=== PATIENT | female | born 1935 | race Caucasian/White ===

== ENCOUNTER 2017-04-01 12:52 | Observation (INO) | payer MEDICARE, SELFPAY ==
[~2017-04-01] VITALS: Ht 165.1 cm; Wt 56.4 kg
[~2017-04-01 12:52] MED LIST: ACETYL PO; ALFALFA250 MG PO; ASCO500 PO; ASCORBIC ACID PO; ASPI81CH PO; ASTAXANTHIN4 MG PO; Armour Thyroid120 MG PO; Ativan0.5 MG PO; BETA GLUCAN; BIO CURCUMIN PO; BOSWELLIA SERRA10 GM; CEPH500 PO; CHOL10002; CHOL10002 PO; CLON.1 PO; CORDYCEPS PO; CORYDALIS; CYTO RALA30 GM; Cephalexin500 MG PO; Co Q-10100 MG PO; Coq-10100 MG PO; Curcumin1 GM; Curcumin1 GM PO; Cytomel5 MCG PO; DANDELION ROOT PO; DILT120 PO; DOCU100 PO; FISH1000 PO; FURO40 PO; GAVILAX17 GM PO; GINKGO60 MG PO; GLUC500 PO; GRAPE SEED EXTR50 MG; Ginger500 MG; HAWTHORN PO; HAWTHORN150 MG; HYDR1TAB94 PO; LACTOFERRIN PO; LEVOTHYROXINE PO; LEVSOD100 PO; LEVSOD50 PO; LIOT5 PO; LORA.5 PO; LOSA25; LOSHYD PO; LOSHYD100 PO; Lipoic Acid1 GM PO; MAGCIT300 PO; MARIJUANA; METO10 PO; METO50 PO; MILK THISTLE200 MG; MILK THISTLE200 MG PO; MSM1000 MG PO; MULVIT PO; MULVITMIND PO; NALTREXONE PO; NATURE-THROI81.25 MG PO; NIAC500 PO; OLIVE LEAF EXT250 MG PO; ONDA4ODT MM; Oxycodone HCl5 M1 PO; PANT40 PO; PSYL5.85P PO; RESVERATROL100 MG PO; Super B-50 Com1 EACH PO; TAURINE; TOCO400; VITAMIN K240 MCG PO; Vitamin C100 MG/ML PO; Zofran4 MG PO; Zofran8 MG PO; [UNRECOGNIZED DRUG - OTHER]; [UNRECOGNIZED DRUG - OTHER] PO; [UNRECOGNIZED DRUG - OTHER] PO; [UNRECOGNIZED DRUG - OTHER] PO; [UNRECOGNIZED DRUG - OTHER] PO; [UNRECOGNIZED DRUG - OTHER] PO; [UNRECOGNIZED DRUG - OTHER] PO
[2017-04-01 15:28] LABS: Source, Urine Clean Catch
[2017-04-01 15:32] LABS: Albumin, Blood 3.3 g/dL (3.4-5.0); Albumin/Globulin Ratio 1.4 (0.8-1.8); Bilirubin, Total 0.7 mg/dL (0.1-1.0); Bun/Creatinine Ratio 13.7 (12.0-20.0); Calcium, Blood 8.6 mg/dL (8.5-10.1); Creatinine, Blood 1.02 mg/dL (0.40-1.00); Globulin, Blood 2.3 g/dL (2.2-4.0); Potassium, Blood 2.7 mmol/L (3.5-5.5); Total Protein, Blood 5.6 g/dL (6.4-8.2)
[2017-04-01 15:42] LABS: Appearance, Urine Cloudy (Clear); Bilirubin, Urine Neg (Neg); Blood, Urine 2+ (Neg); Color, Urine Yellow (P-Yellow); Glucose Qualitative, Urine Neg (Neg); Ketones, Urine 2+ (Neg); Leukocyte Esterase, Urine 3+ (Neg); Nitrite, Urine Neg (Neg); Protein, Urine 2+ (Neg); Urobilinogen, Urine NORM (Normal)
[2017-04-01 15:50] LABS: Bacteria Many /hpf; Red Blood Cells, Urine 0-2 /hpf (0-2); Squamous Epithelial Cells Few /hpf (Few); White Blood Cells, Urine 50-100 /hpf (0-5)
[2017-04-01 15:51] LABS: Granular Casts 0-2 /lpf (0)
[2017-04-01 15:53] LABS: Mean Corpuscular HGB 31.3 pg (26.0-34.0); Mean Corpuscular HGB Conc 32.6 g/dL (31.5-36.5); Mean Corpuscular Volume 96 fL (80-100); Mean Platelet Volume 8.6 fL (9.1-12.4); NRBC ABSOLUTE 0.18 K/mm3 (0.00-0.02); NRBC Auto 0.2 /100 WBC (0.0-0.2); RDW Coefficient Variation 25.3 % (11.7-14.2); RDW Standard Deviation 55.1 fL (35.1-46.3); Red Blood Cell Count 1.44 M/mm3 (3.80-5.20)
[2017-04-01 15:59] LABS: Platelet Count 10 K/mm3 (150-400)
[2017-04-01 16:00] LABS: Hematocrit 13.8 % (33.0-51.0); Hemoglobin 4.5 g/dL (11.5-16.0)
[2017-04-01 16:01] LABS: White Blood Cell Count 76.88 K/mm3 (4.00-11.30)
[2017-04-01 17:14] LABS: BAND PERCENT MAN 2 % (0-8); BASOPHILS PERCENT MAN 0 % (0-2); EOSINOPHILS PERCENT MAN 0 % (0-6); LYMPHOCYTES ABSOLUTE MAN 3.84 K/mm3 (0.84-5.20); LYMPHOCYTES PERCENT MAN 5 % (21-46); METAMYELOCYTE ABSOLUTE MAN 3.84 K/mm3 (0.00-0.00); METAMYELOCYTE PERCENT MAN 5 % (0-0); MONOCYTES ABSOLUTE MAN 29.21 K/mm3 (0.16-1.47); MONOCYTES PERCENT MAN 38 % (4-13); MYELOCYTE ABSOLUTE MAN 1.53 K/mm3 (0.00-0.00); MYELOCYTE PERCENT MAN 2 % (0-0); TOTAL CELLS COUNTED 100
[2017-04-01 17:18] LABS: BLASTS PERCENT MAN 14 % (0-0); OTHER CELL PERCENT MAN 32 % (0-0); PROMYELOCYTE ABSOLUTE MAN 1.53 K/mm3 (0.00-0.00); PROMYELOCYTE PERCENT MAN 2 % (0-0)
[2017-04-01 17:30] LABS: NEUTROPHILS ABSOLUTE MAN 5.38 K/mm3 (1.96-9.15); SEG NEUTROPHILS PERCENT MAN 5 % (41-73)
[2017-04-02 05:14] LABS: Hemoglobin 7.1 g/dL (11.5-16.0)
[2017-04-02 05:38] LABS: Anion Gap 10 mmol/L (6-16); Blood Urea Nitrogen 13 mg/dL (8-24); Bun/Creatinine Ratio 13.2 (12.0-20.0); CO2, Blood 28 mmol/L (21-32); Chloride, Blood 102 mmol/L (98-108); Creatinine, Blood 0.98 mg/dL (0.40-1.00); Glomerular Filtration Rate 58 (60-); Glucose, Blood 103 mg/dL (70-99); Potassium, Blood 3.5 mmol/L (3.5-5.5); Sodium, Blood 140 mmol/L (136-145)
[2017-04-02 05:41] LABS: Troponin I <0.015 ng/mL (0.000-0.040)
[2017-04-02] MEDS ORDERED: Dazidox10 MG PO (09:12)
[2017-04-02] MEDS ORDERED: FENT50TP TOP (14:01)
== END 2017-04-02 14:31 | disposition home or self-care (01) ==
LOC: ER 12:52 → MEDS 12:53 → ER 18:31 → MEDS 19:35 → ENPENDDIS 04-02 08:26 → MEDS 04-02 14:31
PROVIDERS: Emergency Medicine; Hospitalist
DX: D46.9 Myelodysplastic syndrome, unspecified (principal); E87.6 Hypokalemia; N39.0 Urinary tract infection, site not specified; I10 Essential (primary) hypertension; I48.91 Unspecified atrial fibrillation; G89.29 Other chronic pain; E89.0 Postprocedural hypothyroidism; Z85.830 Personal history of malignant neoplasm of bone; Z98.890 Other specified postprocedural states; C41.9 Malignant neoplasm of bone and articular cartilage, unspecified; G89.3 Neoplasm related pain (acute) (chronic); J90 Pleural effusion, not elsewhere classified; J98.8 Other specified respiratory disorders; E46 Unspecified protein-calorie malnutrition
CPT/HCPCS: 36415; 36430; 71046; 80048; 80053; 81001; 83735; 84484; 85014; 85018; 85025; 86850; 86900; 86901; 86923; 87077; 87086; 87186; 93005; 93010; 96361; 96374; 99285; G0378; J0696; J2001; J3480; J7030; J7050; P9016

== ENCOUNTER 2017-04-07 12:05 | Inpatient (IN) | payer MEDICARE, SELFPAY ==
[~2017-04-07] VITALS: Ht 162.6 cm; Wt 60.0 kg
[~2017-04-07 12:05] MED LIST changes: +Dazidox10 MG PO; +FENT50TP TOP
[2017-04-07 13:31] LABS: Hemoglobin 7.1 g/dL (11.5-16.0); Mean Corpuscular HGB 30.6 pg (26.0-34.0); Mean Corpuscular HGB Conc 33.8 g/dL (31.5-36.5); NRBC ABSOLUTE 0.09 K/mm3 (0.00-0.02); NRBC Auto 0.1 /100 WBC (0.0-0.2); RDW Coefficient Variation 19.1 % (11.7-14.2); RDW Standard Deviation 51.9 fL (35.1-46.3); Red Blood Cell Count 2.32 M/mm3 (3.80-5.20)
[2017-04-07 13:32] LABS: Mean Corpuscular Volume 91 fL (80-100)
[2017-04-07 13:39] LABS: Platelet Count 5 K/mm3 (150-400); White Blood Cell Count 81.45 K/mm3 (4.00-11.30)
[2017-04-07 13:42] LABS: International Normalized Ratio 1.07; Prothrombin Time Results 11.2 Sec (9.7-11.5)
[2017-04-07 13:51] LABS: Alanine Aminotransfer (ALT/SGP 16 U/L (12-78); Albumin, Blood 3.4 g/dL (3.4-5.0); Albumin/Globulin Ratio 1.3 (0.8-1.8); Alk Phos 49 U/L (50-136); Anion Gap 11 mmol/L (6-16); Aspartate Aminotrans (AST/SGOT 29 U/L (12-37); BAND PERCENT MAN 4 % (0-8); BASOPHILS PERCENT MAN 0 % (0-2); BLASTS PERCENT MAN 12 % (0-0); Bilirubin, Total 0.8 mg/dL (0.1-1.0); Blood Urea Nitrogen 13 mg/dL (8-24); CO2, Blood 28 mmol/L (21-32); Calcium, Blood 8.3 mg/dL (8.5-10.1); Chloride, Blood 99 mmol/L (98-108); EOSINOPHILS PERCENT MAN 0 % (0-6); Globulin, Blood 2.7 g/dL (2.2-4.0); Glomerular Filtration Rate 57 (60-); Glucose, Blood 93 mg/dL (70-99); LYMPHOCYTES ABSOLUTE MAN 8.95 K/mm3 (0.84-5.20); LYMPHOCYTES PERCENT MAN 11 % (21-46); MONOCYTES ABSOLUTE MAN 45.61 K/mm3 (0.16-1.47); MONOCYTES PERCENT MAN 56 % (4-13); MYELOCYTE ABSOLUTE MAN 2.44 K/mm3 (0.00-0.00); MYELOCYTE PERCENT MAN 3 % (0-0); NEUTROPHILS ABSOLUTE MAN 4.07 K/mm3 (1.96-9.15); PROMYELOCYTE ABSOLUTE MAN 1.62 K/mm3 (0.00-0.00); PROMYELOCYTE PERCENT MAN 2 % (0-0); Potassium, Blood 2.3 mmol/L (3.5-5.5); SEG NEUTROPHILS PERCENT MAN 1 % (41-73); Sodium, Blood 138 mmol/L (136-145); TOTAL CELLS COUNTED 100; Total Protein, Blood 6.1 g/dL (6.4-8.2)
[2017-04-07 13:52] LABS: OTHER CELL PERCENT MAN 11 % (0-0)
[2017-04-07 15:35] LABS: CPK Creatine Kinase 48 U/L (26-193); Magnesium, Blood 2.3 mg/dL (1.6-2.4)
[2017-04-07 15:40] LABS: Troponin I <0.015 ng/mL (0.000-0.040)
[2017-04-07 15:45] LABS: Creatine Kinase MB <0.5 ng/mL (0.0-3.6); Creatine Kinase MB Index Unable to Calculate (0.0-4.0)
[2017-04-07 17:09] LABS: Influenza A Negative (NEGATIVE); Influenza B Positive (NEGATIVE)
[2017-04-08 05:16] LABS: Hematocrit 24.9 % (33.0-51.0); Hemoglobin 8.5 g/dL (11.5-16.0); Mean Corpuscular HGB 29.8 pg (26.0-34.0); Mean Corpuscular HGB Conc 34.1 g/dL (31.5-36.5); Mean Platelet Volume 9.4 fL (9.1-12.4); NRBC ABSOLUTE 0.09 K/mm3 (0.00-0.02); NRBC Auto 0.1 /100 WBC (0.0-0.2); Platelet Count 74 K/mm3 (150-400); RDW Standard Deviation 47.3 fL (35.1-46.3); Red Blood Cell Count 2.85 M/mm3 (3.80-5.20)
[2017-04-08 05:31] LABS: Mean Corpuscular Volume 87 fL (80-100)
[2017-04-08 05:33] LABS: White Blood Cell Count 86.98 K/mm3 (4.00-11.30)
[2017-04-08 05:35] LABS: International Normalized Ratio 1.09; Prothrombin Time Results 11.4 Sec (9.7-11.5)
[2017-04-08 05:48] LABS: Bun/Creatinine Ratio 15.2 (12.0-20.0); Calcium, Blood 7.9 mg/dL (8.5-10.1); Creatinine, Blood 1.05 mg/dL (0.40-1.00); Potassium, Blood 2.5 mmol/L (3.5-5.5)
[2017-04-08 06:02] LABS: BAND PERCENT MAN 1 % (0-8); BASOPHILS PERCENT MAN 0 % (0-2); EOSINOPHILS PERCENT MAN 0 % (0-6); LYMPHOCYTES ABSOLUTE MAN 8.69 K/mm3 (0.84-5.20); LYMPHOCYTES PERCENT MAN 10 % (21-46); MONOCYTES ABSOLUTE MAN 61.75 K/mm3 (0.16-1.47); MONOCYTES PERCENT MAN 71 % (4-13); MYELOCYTE ABSOLUTE MAN 1.73 K/mm3 (0.00-0.00); MYELOCYTE PERCENT MAN 2 % (0-0); NEUTROPHILS ABSOLUTE MAN 5.21 K/mm3 (1.96-9.15); SEG NEUTROPHILS PERCENT MAN 5 % (41-73); TOTAL CELLS COUNTED 100
[2017-04-08 06:03] LABS: OTHER CELL PERCENT MAN 11 % (0-0)
[2017-04-09 04:59] LABS: Bilirubin, Urine Neg (Neg); Blood, Urine 2+ (Neg); Glucose Qualitative, Urine Neg (Neg); Ketones, Urine Neg (Neg); Leukocyte Esterase, Urine 1+ (Neg); Nitrite, Urine Neg (Neg); Protein, Urine 2+ (Neg); Urobilinogen, Urine NORM (Normal)
[2017-04-09 05:13] LABS: Appearance, Urine Hazy (Clear); Color, Urine Yellow (P-Yellow)
[2017-04-09 05:14] LABS: Red Blood Cells, Urine 0-2 /hpf (0-2)
[2017-04-09 05:15] LABS: Bacteria Few /hpf; Granular Casts TNTC /lpf (0); Mucus Light (0-Heavy); Renal Epithelial Mod /hpf (0-Rare); Squamous Epithelial Cells Few /hpf (Few)
[2017-04-09 05:16] LABS: Transitional Epithelial Cells Few /hpf (0-Rare); WBC Cast 0-2 /lpf (0)
[2017-04-09 08:36] LABS: Hematocrit 26.9 % (33.0-51.0); Hemoglobin 9.1 g/dL (11.5-16.0); Mean Corpuscular HGB 30.3 pg (26.0-34.0); Mean Corpuscular HGB Conc 33.8 g/dL (31.5-36.5); Mean Corpuscular Volume 90 fL (80-100); Mean Platelet Volume 11.2 fL (9.1-12.4); RDW Coefficient Variation 17.8 % (11.7-14.2); RDW Standard Deviation 51.2 fL (35.1-46.3); White Blood Cell Count 107.34 K/mm3 (4.00-11.30)
[2017-04-09 08:42] LABS: Bun/Creatinine Ratio 16.2 (12.0-20.0); Calcium, Blood 7.9 mg/dL (8.5-10.1); Creatinine, Blood 1.11 mg/dL (0.40-1.00)
[2017-04-09 08:51] LABS: Platelet Count 19 K/mm3 (150-400)
[2017-04-10] MEDS ORDERED: MEGESTROL400 MG/10 PO (07:41)
[2017-04-10] MEDS ORDERED: TEMA15 PO (07:45)
== END 2017-04-10 08:37 | disposition home health service (06) | DRG 812 ==
LOC: DELPENDDIS → ER 12:05 → MEDS 12:06 → ENPENDDIS 04-08 12:00 → MEDS 04-09 12:25
PROVIDERS: Emergency Medicine; Family Medicine
PROC: 30233N1 Transfusion of Nonautologous Red Blood Cells into Peripheral Vein, Percutaneous Approach (ICD-10-PCS; 2017-04-07)
PROC: 30233R1 Transfusion of Nonautologous Platelets into Peripheral Vein, Percutaneous Approach (ICD-10-PCS; principal; 2017-04-08)
DX: D46.9 Myelodysplastic syndrome, unspecified (principal); I27.20 Pulmonary hypertension, unspecified; I50.32 Chronic diastolic (congestive) heart failure; D64.9 Anemia, unspecified; R62.7 Adult failure to thrive; E87.6 Hypokalemia; R60.0 Localized edema; J10.1 Influenza due to other identified influenza virus with other respiratory manifestations
CPT/HCPCS: 36415; 36430; 71046; 80048; 80053; 81001; 82550; 82553; 83605; 83735; 83880; 84484; 85025; 85027; 85610; 85730; 86850; 86900; 86901; 86923; 87040; 87086; 87804; 93005; 93010; 94761; 96365; 96366; 96375; 96376; 99285; G0378; J1940; J2001; J3420; J3480; J7030; J7050; P9016; P9035

== ENCOUNTER 2017-04-18 13:30 | Emergency (ER) | payer MEDICARE, SELFPAY ==
[~2017-04-18] VITALS: Ht 165.1 cm; Wt 54.4 kg
[~2017-04-18 13:30] MED LIST changes: +MEGESTROL400 MG/10 PO; +TEMA15 PO
[2017-04-18 14:07] LABS: Hematocrit 26.1 % (33.0-51.0); Hemoglobin 8.3 g/dL (11.5-16.0); Mean Corpuscular HGB 29.4 pg (26.0-34.0); Mean Corpuscular HGB Conc 31.8 g/dL (31.5-36.5); Mean Corpuscular Volume 93 fL (80-100); RDW Coefficient Variation 15.9 % (11.7-14.2); RDW Standard Deviation 49.4 fL (35.1-46.3); Red Blood Cell Count 2.82 M/mm3 (3.80-5.20); White Blood Cell Count 19.75 K/mm3 (4.00-11.30)
[2017-04-18 14:15] LABS: Albumin, Blood 3.4 g/dL (3.4-5.0); Albumin/Globulin Ratio 1.1 (0.8-1.8); Bilirubin, Total 0.7 mg/dL (0.1-1.0); Bun/Creatinine Ratio 14.3 (12.0-20.0); Calcium, Blood 8.7 mg/dL (8.5-10.1); Creatinine, Blood 1.05 mg/dL (0.40-1.00); Globulin, Blood 3.1 g/dL (2.2-4.0); Total Protein, Blood 6.5 g/dL (6.4-8.2)
[2017-04-18 14:50] LABS: Platelet Count 3 K/mm3 (150-400)
[2017-04-18 15:07] LABS: BAND PERCENT MAN 1 % (0-8); BASOPHILS PERCENT MAN 0 % (0-2); EOSINOPHILS PERCENT MAN 0 % (0-6); LYMPHOCYTES ABSOLUTE MAN 6.12 K/mm3 (0.84-5.20); LYMPHOCYTES PERCENT MAN 31 % (21-46); METAMYELOCYTE ABSOLUTE MAN 0.98 K/mm3 (0.00-0.00); METAMYELOCYTE PERCENT MAN 5 % (0-0); MONOCYTES ABSOLUTE MAN 11.06 K/mm3 (0.16-1.47); MONOCYTES PERCENT MAN 56 % (4-13); NEUTROPHILS ABSOLUTE MAN 1.58 K/mm3 (1.96-9.15); SEG NEUTROPHILS PERCENT MAN 7 % (41-73); TOTAL CELLS COUNTED 100
== END 2017-04-18 19:36 | disposition home or self-care (01) ==
LOC: ER 13:30
PROVIDERS: Physician Assistant
DX: D64.9 Anemia, unspecified (principal); D69.1 Qualitative platelet defects; C94.6 Myelodysplastic disease, not elsewhere classified; E87.6 Hypokalemia; I10 Essential (primary) hypertension; E03.9 Hypothyroidism, unspecified; I48.91 Unspecified atrial fibrillation; Z88.2 Allergy status to sulfonamides; Z88.1 Allergy status to other antibiotic agents; Z79.899 Other long term (current) drug therapy; Z90.89 Acquired absence of other organs
CPT/HCPCS: 36415; 36430; 80053; 85025; 86900; 86901; 96365; 96366; 99284; J2001; J3480; J7030; J7050; P9053

== ENCOUNTER → 2017-04-24 | Outpatient (CLI) | payer MEDICARE ==
[~2017-04-24] MED LIST changes: +ACET325 PO; +Acetaminophen325 M1 PO; +CALCIUM 500 +1 EAC3 PO; +FURO20 PO; +Fentanyl1 EACH TD; +GNP B-COMPLEX1 EACH PO; +IMODIUM A-D2 M1 PO; +LEVO750 PO; +LORA.5; +MORPHINE SULF; +POTCHL20ER PO; +THYR60; +THYR60 PO; +TOCO1000 PO; +UBID100 PO
== END | disposition home or self-care (01) ==
LOC: LAB 16:00
PROVIDERS: Internal Medicine Hematology & Oncology
DX: R30.0 Dysuria (principal)
CPT/HCPCS: 81001

== ENCOUNTER 2017-04-25 13:19 | Observation (INO) | payer MEDICARE, SELFPAY ==
[~2017-04-25] VITALS: Ht 162.6 cm; Wt 57.7 kg
[~2017-04-25 13:19] MED LIST changes: -ACET325 PO; -Acetaminophen325 M1 PO; -CALCIUM 500 +1 EAC3 PO; -FURO20 PO; -Fentanyl1 EACH TD; -GNP B-COMPLEX1 EACH PO; -IMODIUM A-D2 M1 PO; -LEVO750 PO; -LORA.5; -MORPHINE SULF; -POTCHL20ER PO; -THYR60; -THYR60 PO; -TOCO1000 PO; -UBID100 PO
[2017-04-25 14:31] LABS: BASOPHILS ABSOLUTE AUTO 0.01 K/mm3 (0.00-0.23); BASOPHILS PERCENT AUTO 0 % (0-2); EOSINOPHILS PERCENT AUTO 0 % (0-6); Hematocrit 20.6 % (33.0-51.0); Hemoglobin 6.7 g/dL (11.5-16.0); IMMATURE GRAN ABSOLUTE AUTO 0.27 K/mm3 (0.00-0.10); IMMATURE GRAN PERCENT AUTO 2 % (0-1); LYMPHOCYTES ABSOLUTE AUTO 2.31 K/mm3 (0.84-5.20); LYMPHOCYTES PERCENT AUTO 13 % (21-46); MONOCYTES ABSOLUTE AUTO 13.05 K/mm3 (0.16-1.47); MONOCYTES PERCENT AUTO 75 % (4-13); Mean Corpuscular HGB 29.5 pg (26.0-34.0); Mean Corpuscular HGB Conc 32.5 g/dL (31.5-36.5); Mean Corpuscular Volume 91 fL (80-100); Mean Platelet Volume 12.1 fL (9.1-12.4); NEUTROPHILS ABSOLUTE AUTO 1.84 K/mm3 (1.96-9.15); NEUTROPHILS PERCENT AUTO 11 % (41-73); RDW Coefficient Variation 15.4 % (11.7-14.2); RDW Standard Deviation 48.4 fL (35.1-46.3); Red Blood Cell Count 2.27 M/mm3 (3.80-5.20); White Blood Cell Count 17.48 K/mm3 (4.00-11.30)
[2017-04-25] MEDS ORDERED: THYR60 (14:32)
[2017-04-25 14:36] LABS: Platelet Count 8 K/mm3 (150-400)
[2017-04-25 14:47] LABS: Albumin, Blood 3.4 g/dL (3.4-5.0); Albumin/Globulin Ratio 1.2 (0.8-1.8); Bilirubin, Total 0.7 mg/dL (0.1-1.0); Bun/Creatinine Ratio 15.4 (12.0-20.0); Calcium, Blood 8.6 mg/dL (8.5-10.1); Creatinine, Blood 0.97 mg/dL (0.40-1.00); Globulin, Blood 2.9 g/dL (2.2-4.0); Potassium, Blood 2.8 mmol/L (3.5-5.5); Total Protein, Blood 6.3 g/dL (6.4-8.2)
[2017-04-25 18:29] LABS: Source, Urine Clean Catch
[2017-04-25 18:40] LABS: Bilirubin, Urine Neg (Neg); Blood, Urine 4+ (Neg); Glucose Qualitative, Urine Neg (Neg); Ketones, Urine Neg (Neg); Leukocyte Esterase, Urine Neg (Neg); Nitrite, Urine Neg (Neg); Protein, Urine 2+ (Neg); Specific Gravity, Urine 1.015 (1.003-1.022); Urobilinogen, Urine NORM (Normal)
[2017-04-25 18:55] LABS: Color, Urine Yellow (P-Yellow)
[2017-04-25 18:56] LABS: Appearance, Urine Clear (Clear); Squamous Epithelial Cells Few /hpf (Few); Yeast/Fungi Urine Few /hpf
[2017-04-25 18:57] LABS: Amorphous Light (0-Heavy); Bacteria Few /hpf
[2017-04-26 01:29] LABS: Hematocrit 22.7 % (33.0-51.0); Hemoglobin 7.7 g/dL (11.5-16.0)
[2017-04-26 05:51] LABS: Hematocrit 24.7 % (33.0-51.0); Hemoglobin 8.2 g/dL (11.5-16.0); Mean Corpuscular HGB 29.2 pg (26.0-34.0); Mean Corpuscular HGB Conc 33.2 g/dL (31.5-36.5); Mean Platelet Volume 10.1 fL (9.1-12.4); NRBC ABSOLUTE 0.02 K/mm3 (0.00-0.02); NRBC Auto 0.1 /100 WBC (0.0-0.2); Platelet Count 68 K/mm3 (150-400); RDW Coefficient Variation 14.4 % (11.7-14.2); RDW Standard Deviation 44.8 fL (35.1-46.3); Red Blood Cell Count 2.81 M/mm3 (3.80-5.20); White Blood Cell Count 19.79 K/mm3 (4.00-11.30)
[2017-04-26 06:01] LABS: Mean Corpuscular Volume 88 fL (80-100)
[2017-04-26 06:11] LABS: Bun/Creatinine Ratio 17.1 (12.0-20.0); Calcium, Blood 8.1 mg/dL (8.5-10.1); Creatinine, Blood 0.99 mg/dL (0.40-1.00); Magnesium, Blood 2.4 mg/dL (1.6-2.4); Potassium, Blood 3.2 mmol/L (3.5-5.5)
[2017-04-26 07:16] LABS: BAND PERCENT MAN 1 % (0-8); BASOPHILS PERCENT MAN 0 % (0-2); EOSINOPHILS PERCENT MAN 0 % (0-6); LYMPHOCYTES % ATYPICAL MANUAL 6 % (0-0); LYMPHOCYTES PERCENT MAN 37 % (21-46); METAMYELOCYTE ABSOLUTE MAN 0.39 K/mm3 (0.00-0.00); METAMYELOCYTE PERCENT MAN 2 % (0-0); MONOCYTES ABSOLUTE MAN 7.91 K/mm3 (0.16-1.47); MONOCYTES PERCENT MAN 40 % (4-13); NEUTROPHILS ABSOLUTE MAN 1.18 K/mm3 (1.96-9.15); SEG NEUTROPHILS PERCENT MAN 5 % (41-73); TOTAL CELLS COUNTED 100
[2017-04-26 07:17] LABS: BLASTS PERCENT MAN 3 % (0-0); OTHER CELL PERCENT MAN 6 % (0-0)
[2017-04-26] MEDS ORDERED: FURO20 PO (11:52)
[2017-04-26] MEDS ORDERED: POTCHL20ER PO (11:54)
== END 2017-04-26 13:18 | disposition home or self-care (01) ==
LOC: ER 13:19 → MEDS 13:20
PROVIDERS: Emergency Medicine; Internal Medicine
DX: D53.9 Nutritional anemia, unspecified (principal); D47.3 Essential (hemorrhagic) thrombocythemia; D46.9 Myelodysplastic syndrome, unspecified; I50.32 Chronic diastolic (congestive) heart failure; E87.6 Hypokalemia; I48.91 Unspecified atrial fibrillation; E46 Unspecified protein-calorie malnutrition; E03.9 Hypothyroidism, unspecified; K56.609 Unspecified intestinal obstruction, unspecified as to partial versus complete obstruction; R62.7 Adult failure to thrive; Z88.2 Allergy status to sulfonamides; Z79.899 Other long term (current) drug therapy
CPT/HCPCS: 36415; 36430; 80048; 80053; 81001; 83735; 85014; 85018; 85025; 86850; 86900; 86901; 86923; 93005; 93010; 96360; 96361; 96374; 99285; G0378; J1940; J3480; J7030; J7040; P9016; P9035

== ENCOUNTER 2017-05-10 09:52 | Emergency (ER) | payer MEDICARE, SELFPAY ==
[~2017-05-10] VITALS: Ht 162.6 cm; Wt 54.4 kg
[~2017-05-10 09:52] MED LIST changes: +FURO20 PO; +POTCHL20ER PO; +THYR60
[2017-05-10] MEDS ORDERED: MORPHINE SULF (10:40)
[2017-05-10 10:54] LABS: BASOPHILS ABSOLUTE AUTO 0.01 K/mm3 (0.00-0.23); BASOPHILS PERCENT AUTO 0 % (0-2); EOSINOPHILS PERCENT AUTO 0 % (0-6); Hematocrit 21.9 % (33.0-51.0); IMMATURE GRAN ABSOLUTE AUTO 0.13 K/mm3 (0.00-0.10); IMMATURE GRAN PERCENT AUTO 1 % (0-1); LYMPHOCYTES ABSOLUTE AUTO 2.13 K/mm3 (0.84-5.20); LYMPHOCYTES PERCENT AUTO 15 % (21-46); MONOCYTES ABSOLUTE AUTO 11.56 K/mm3 (0.16-1.47); MONOCYTES PERCENT AUTO 79 % (4-13); Mean Corpuscular HGB 29.3 pg (26.0-34.0); Mean Corpuscular Volume 92 fL (80-100); Mean Platelet Volume 9.7 fL (9.1-12.4); NEUTROPHILS ABSOLUTE AUTO 0.89 K/mm3 (1.96-9.15); NEUTROPHILS PERCENT AUTO 6 % (41-73); NRBC ABSOLUTE 0.02 K/mm3 (0.00-0.02); NRBC Auto 0.1 /100 WBC (0.0-0.2); RDW Coefficient Variation 14.2 % (11.7-14.2); RDW Standard Deviation 46.7 fL (35.1-46.3); Red Blood Cell Count 2.39 M/mm3 (3.80-5.20); White Blood Cell Count 14.72 K/mm3 (4.00-11.30)
[2017-05-10 10:56] LABS: Platelet Count 5 K/mm3 (150-400)
[2017-05-10 11:12] LABS: Alanine Aminotransfer (ALT/SGP 122 U/L (12-78); Albumin, Blood 3.4 g/dL (3.4-5.0); Albumin/Globulin Ratio 1.2 (0.8-1.8); Alk Phos 32 U/L (50-136); Anion Gap 11 mmol/L (6-16); Aspartate Aminotrans (AST/SGOT 62 U/L (12-37); Bilirubin, Total 0.5 mg/dL (0.1-1.0); Blood Urea Nitrogen 17 mg/dL (8-24); Bun/Creatinine Ratio 19.5 (12.0-20.0); CO2, Blood 27 mmol/L (21-32); Chloride, Blood 102 mmol/L (98-108); Creatinine, Blood 0.87 mg/dL (0.40-1.00); Globulin, Blood 2.9 g/dL (2.2-4.0); Glomerular Filtration Rate >60 (60-); Glucose, Blood 102 mg/dL (70-99); Sodium, Blood 140 mmol/L (136-145); Total Protein, Blood 6.3 g/dL (6.4-8.2)
[2017-05-10 11:59] LABS: International Normalized Ratio 1.07; Prothrombin Time Results 11.2 Sec (9.7-11.5)
== END 2017-05-10 15:46 | disposition home or self-care (01) ==
LOC: ER 09:52
PROVIDERS: Emergency Medicine
DX: D46.9 Myelodysplastic syndrome, unspecified (principal); D69.59 Other secondary thrombocytopenia; I10 Essential (primary) hypertension; E03.9 Hypothyroidism, unspecified; I48.91 Unspecified atrial fibrillation; Z88.2 Allergy status to sulfonamides; Z88.1 Allergy status to other antibiotic agents; Z79.899 Other long term (current) drug therapy
CPT/HCPCS: 36415; 36430; 80053; 85025; 85610; 86850; 86900; 86901; 86923; 93005; 93010; 99285; J7030; P9016

== ENCOUNTER 2017-05-18 09:45 | Emergency (ER) | payer MEDICARE, SELFPAY ==
[~2017-05-18] VITALS: Ht 162.6 cm; Wt 54.4 kg
[~2017-05-18 09:45] MED LIST changes: +MORPHINE SULF
[2017-05-18] MEDS ORDERED: FENT50TP TOP (10:17)
[2017-05-18 10:39] LABS: BASOPHILS ABSOLUTE AUTO 0.01 K/mm3 (0.00-0.23); BASOPHILS PERCENT AUTO 0 % (0-2); EOSINOPHILS PERCENT AUTO 0 % (0-6); Hematocrit 23.3 % (33.0-51.0); Hemoglobin 7.5 g/dL (11.5-16.0); IMMATURE GRAN ABSOLUTE AUTO 0.14 K/mm3 (0.00-0.10); IMMATURE GRAN PERCENT AUTO 1 % (0-1); LYMPHOCYTES ABSOLUTE AUTO 2.06 K/mm3 (0.84-5.20); LYMPHOCYTES PERCENT AUTO 12 % (21-46); MONOCYTES ABSOLUTE AUTO 13.19 K/mm3 (0.16-1.47); MONOCYTES PERCENT AUTO 79 % (4-13); Mean Corpuscular HGB 29.6 pg (26.0-34.0); Mean Corpuscular HGB Conc 32.2 g/dL (31.5-36.5); Mean Corpuscular Volume 92 fL (80-100); Mean Platelet Volume 10.2 fL (9.1-12.4); NEUTROPHILS PERCENT AUTO 8 % (41-73); RDW Coefficient Variation 14.2 % (11.7-14.2); RDW Standard Deviation 47.5 fL (35.1-46.3); Red Blood Cell Count 2.53 M/mm3 (3.80-5.20)
[2017-05-18 10:47] LABS: Platelet Count 5 K/mm3 (150-400)
[2017-05-18 10:55] LABS: Alanine Aminotransfer (ALT/SGP 313 U/L (12-78); Albumin, Blood 3.4 g/dL (3.4-5.0); Albumin/Globulin Ratio 1.2 (0.8-1.8); Alk Phos 33 U/L (50-136); Anion Gap 7 mmol/L (6-16); Aspartate Aminotrans (AST/SGOT 110 U/L (12-37); Bilirubin, Total 0.6 mg/dL (0.1-1.0); Blood Urea Nitrogen 18 mg/dL (8-24); Bun/Creatinine Ratio 23.1 (12.0-20.0); CO2, Blood 30 mmol/L (21-32); Calcium, Blood 8.5 mg/dL (8.5-10.1); Chloride, Blood 100 mmol/L (98-108); Creatinine, Blood 0.78 mg/dL (0.40-1.00); Globulin, Blood 2.8 g/dL (2.2-4.0); Glomerular Filtration Rate >60 (60-); Glucose, Blood 121 mg/dL (70-99); Potassium, Blood 3.3 mmol/L (3.5-5.5); Sodium, Blood 137 mmol/L (136-145); Total Protein, Blood 6.2 g/dL (6.4-8.2)
== END 2017-05-18 15:05 | disposition home or self-care (01) ==
LOC: ER 09:45
PROVIDERS: Emergency Medicine
DX: D46.9 Myelodysplastic syndrome, unspecified (principal); D64.9 Anemia, unspecified; D69.6 Thrombocytopenia, unspecified; I10 Essential (primary) hypertension; E03.9 Hypothyroidism, unspecified; I48.91 Unspecified atrial fibrillation; Z79.899 Other long term (current) drug therapy; Z88.1 Allergy status to other antibiotic agents; Z88.8 Allergy status to other drugs, medicaments and biological substances; N19 Unspecified kidney failure; Z85.830 Personal history of malignant neoplasm of bone; Z98.890 Other specified postprocedural states
CPT/HCPCS: 36415; 36430; 80053; 85025; 86850; 86900; 86901; 86923; 99283; J7030; P9016

== ENCOUNTER 2017-05-31 10:23 | Observation (INO) | payer MEDICARE, SELFPAY ==
[~2017-05-31] VITALS: Ht 157.5 cm; Wt 52.2 kg
[2017-05-31 11:35] LABS: Calcium, Ionized (POC) 1.12 mmol/L (1.10-1.46); Chloride (POC) 95 mmol/L (98-108); Glucose (ISTAT POC) 121 mg/dL (70-99); Hemoglobin (POC) 5.4 g/dL (12.0-16.0); Potassium (POC) 2.8 mmol/L (3.5-5.5); Sodium (POC) 137 mmol/L (135-148); Total CO2 (POC) 30 mmol/L (21-32)
[2017-05-31] MEDS ORDERED: ACET325 PO (13:39)
[2017-06-01 06:00] LABS: Hematocrit 26.4 % (33.0-51.0); Hemoglobin 9.4 g/dL (11.5-16.0); Mean Corpuscular HGB 31.1 pg (26.0-34.0); Mean Corpuscular HGB Conc 35.6 g/dL (31.5-36.5); RDW Coefficient Variation 13.7 % (11.7-14.2); RDW Standard Deviation 42.6 fL (35.1-46.3); Red Blood Cell Count 3.02 M/mm3 (3.80-5.20); White Blood Cell Count 27.44 K/mm3 (4.00-11.30)
[2017-06-01 06:14] LABS: Mean Corpuscular Volume 87 fL (80-100)
[2017-06-01 06:16] LABS: Mean Platelet Volume 10.9 fL (9.1-12.4); Platelet Count 41 K/mm3 (150-400)
[2017-06-01 06:20] LABS: BAND PERCENT MAN 2 % (0-8); BASOPHILS PERCENT MAN 0 % (0-2); EOSINOPHILS PERCENT MAN 0 % (0-6); LYMPHOCYTES % ATYPICAL MANUAL 1 % (0-0); LYMPHOCYTES ABSOLUTE MAN 4.66 K/mm3 (0.84-5.20); LYMPHOCYTES PERCENT MAN 16 % (21-46); METAMYELOCYTE ABSOLUTE MAN 0.27 K/mm3 (0.00-0.00); METAMYELOCYTE PERCENT MAN 1 % (0-0); MONOCYTES ABSOLUTE MAN 19.75 K/mm3 (0.16-1.47); MONOCYTES PERCENT MAN 72 % (4-13); NEUTROPHILS ABSOLUTE MAN 2.74 K/mm3 (1.96-9.15); SEG NEUTROPHILS PERCENT MAN 8 % (41-73); TOTAL CELLS COUNTED 100
== END 2017-06-01 12:00 | disposition home or self-care (01) ==
LOC: ER 10:23 → MEDS 10:24
PROVIDERS: Emergency Medicine; Hospitalist
DX: D46.4 Refractory anemia, unspecified (principal); D69.6 Thrombocytopenia, unspecified; E89.0 Postprocedural hypothyroidism; E87.6 Hypokalemia; G89.29 Other chronic pain; I10 Essential (primary) hypertension; I48.91 Unspecified atrial fibrillation; Z98.890 Other specified postprocedural states; Z79.899 Other long term (current) drug therapy
CPT/HCPCS: 36415; 36430; 80047; 82728; 85014; 85025; 86850; 86900; 86901; 86923; 99285; G0378; P9016; P9035

== ENCOUNTER 2017-06-10 17:14 | Inpatient (IN) | payer MEDICARE, SELFPAY ==
[~2017-06-10] VITALS: Ht 162.6 cm; Wt 59.9 kg
[~2017-06-10 17:14] MED LIST changes: +ACET325 PO
[2017-06-10 18:36] LABS: Hematocrit 24.3 % (33.0-51.0); Mean Corpuscular HGB Conc 32.9 g/dL (31.5-36.5); Mean Corpuscular Volume 94 fL (80-100); RDW Coefficient Variation 15.2 % (11.7-14.2); RDW Standard Deviation 52.1 fL (35.1-46.3); Red Blood Cell Count 2.58 M/mm3 (3.80-5.20)
[2017-06-10 18:54] LABS: Alanine Aminotransfer (ALT/SGP 63 U/L (12-78); Albumin, Blood 3.1 g/dL (3.4-5.0); Albumin/Globulin Ratio 1.1 (0.8-1.8); Alk Phos 44 U/L (50-136); Anion Gap 7 mmol/L (6-16); Aspartate Aminotrans (AST/SGOT 22 U/L (12-37); Bilirubin, Total 0.5 mg/dL (0.1-1.0); Blood Urea Nitrogen 19 mg/dL (8-24); Bun/Creatinine Ratio 19.2 (12.0-20.0); CO2, Blood 29 mmol/L (21-32); Calcium, Blood 8.9 mg/dL (8.5-10.1); Chloride, Blood 101 mmol/L (98-108); Creatinine, Blood 0.99 mg/dL (0.40-1.00); Globulin, Blood 2.9 g/dL (2.2-4.0); Glomerular Filtration Rate 57 (60-); Glucose, Blood 124 mg/dL (70-99); Potassium, Blood 3.6 mmol/L (3.5-5.5); Sodium, Blood 137 mmol/L (136-145); Troponin I <0.015 ng/mL (0.000-0.040)
[2017-06-10 19:10] LABS: Mean Platelet Volume 9.3 fL (9.1-12.4); Platelet Count 7 K/mm3 (150-400)
[2017-06-10 19:14] LABS: International Normalized Ratio 1.05; Prothrombin Time Results 10.9 Sec (9.7-11.5)
[2017-06-10 19:19] LABS: BASOPHILS PERCENT MAN 0 % (0-2); LYMPHOCYTES ABSOLUTE MAN 5.35 K/mm3 (0.84-5.20); LYMPHOCYTES PERCENT MAN 9 % (21-46); TOTAL CELLS COUNTED 100
[2017-06-10 19:26] LABS: EOSINOPHILS ABSOLUTE MAN 0.59 K/mm3 (0.00-0.68); EOSINOPHILS PERCENT MAN 1 % (0-6); MONOCYTES ABSOLUTE MAN 44.03 K/mm3 (0.16-1.47); MONOCYTES PERCENT MAN 74 % (4-13); NEUTROPHILS ABSOLUTE MAN 3.57 K/mm3 (1.96-9.15); OTHER CELL PERCENT MAN 10 % (0-0); SEG NEUTROPHILS PERCENT MAN 6 % (41-73)
[2017-06-10] MEDS ORDERED: LORA.5 (21:51)
[2017-06-10] MEDS ORDERED: ASCO500 PO (22:43)
[2017-06-10] MEDS ORDERED: UBID100 PO (22:46)
[2017-06-10] MEDS ORDERED: TOCO1000 PO (22:46)
[2017-06-11 03:52] LABS: BASOPHILS ABSOLUTE AUTO 0.01 K/mm3 (0.00-0.23); BASOPHILS PERCENT AUTO 0 % (0-2); EOSINOPHILS ABSOLUTE AUTO 0.02 K/mm3 (0.00-0.68); EOSINOPHILS PERCENT AUTO 0 % (0-6); Hematocrit 19.7 % (33.0-51.0); Hemoglobin 6.2 g/dL (11.5-16.0); Mean Corpuscular HGB 30.4 pg (26.0-34.0); Mean Corpuscular HGB Conc 31.5 g/dL (31.5-36.5); Mean Platelet Volume 9.8 fL (9.1-12.4); NRBC ABSOLUTE 0.02 K/mm3 (0.00-0.02); RDW Coefficient Variation 15.3 % (11.7-14.2); RDW Standard Deviation 54.4 fL (35.1-46.3); Red Blood Cell Count 2.04 M/mm3 (3.80-5.20)
[2017-06-11 03:56] LABS: IMMATURE GRAN ABSOLUTE AUTO 0.67 K/mm3 (0.00-0.10); IMMATURE GRAN PERCENT AUTO 1 % (0-1); LYMPHOCYTES ABSOLUTE AUTO 3.51 K/mm3 (0.84-5.20); LYMPHOCYTES PERCENT AUTO 6 % (21-46); MONOCYTES PERCENT AUTO 89 % (4-13); Mean Corpuscular Volume 97 fL (80-100); NEUTROPHILS PERCENT AUTO 4 % (41-73)
[2017-06-11 03:58] LABS: Platelet Count 40 K/mm3 (150-400); White Blood Cell Count 59.91 K/mm3 (4.00-11.30)
[2017-06-11 04:12] LABS: Bun/Creatinine Ratio 18.9 (12.0-20.0); Creatinine, Blood 1.06 mg/dL (0.40-1.00); Potassium, Blood 3.7 mmol/L (3.5-5.5)
[2017-06-12 01:17] LABS: Hematocrit 27.4 % (33.0-51.0); Hemoglobin 9.3 g/dL (11.5-16.0); Mean Corpuscular HGB 31.2 pg (26.0-34.0); Mean Corpuscular HGB Conc 33.9 g/dL (31.5-36.5); Mean Platelet Volume 11.5 fL (9.1-12.4); NRBC ABSOLUTE 0.02 K/mm3 (0.00-0.02); RDW Coefficient Variation 15.5 % (11.7-14.2); RDW Standard Deviation 51.4 fL (35.1-46.3); Red Blood Cell Count 2.98 M/mm3 (3.80-5.20); White Blood Cell Count 44.24 K/mm3 (4.00-11.30)
[2017-06-12 01:19] LABS: Mean Corpuscular Volume 92 fL (80-100)
[2017-06-12 01:21] LABS: Platelet Count 28 K/mm3 (150-400)
[2017-06-12 01:33] LABS: Vancomycin, Trough 9.5 ug/mL (5.0-10.0)
[2017-06-13 05:51] LABS: Hematocrit 30.5 % (33.0-51.0); Hemoglobin 10.1 g/dL (11.5-16.0); Mean Corpuscular HGB 30.8 pg (26.0-34.0); Mean Corpuscular HGB Conc 33.1 g/dL (31.5-36.5); Mean Corpuscular Volume 93 fL (80-100); Mean Platelet Volume 10.5 fL (9.1-12.4); RDW Coefficient Variation 15.7 % (11.7-14.2); RDW Standard Deviation 53.1 fL (35.1-46.3); Red Blood Cell Count 3.28 M/mm3 (3.80-5.20); White Blood Cell Count 28.49 K/mm3 (4.00-11.30)
[2017-06-13 05:54] LABS: Platelet Count 19 K/mm3 (150-400)
[2017-06-13 06:27] LABS: BAND PERCENT MAN 1 % (0-8); BASOPHILS PERCENT MAN 0 % (0-2); BLASTS PERCENT MAN 5 % (0-0); EOSINOPHILS PERCENT MAN 0 % (0-6); LYMPHOCYTES % ATYPICAL MANUAL 3 % (0-0); LYMPHOCYTES ABSOLUTE MAN 9.68 K/mm3 (0.84-5.20); LYMPHOCYTES PERCENT MAN 31 % (21-46); METAMYELOCYTE ABSOLUTE MAN 0.85 K/mm3 (0.00-0.00); METAMYELOCYTE PERCENT MAN 3 % (0-0); MONOCYTES ABSOLUTE MAN 15.09 K/mm3 (0.16-1.47); MONOCYTES PERCENT MAN 53 % (4-13); NEUTROPHILS ABSOLUTE MAN 1.42 K/mm3 (1.96-9.15); SEG NEUTROPHILS PERCENT MAN 4 % (41-73); TOTAL CELLS COUNTED 100
[2017-06-13 06:31] LABS: Bun/Creatinine Ratio 28.6 (12.0-20.0); Calcium, Blood 8.1 mg/dL (8.5-10.1); Creatinine, Blood 1.05 mg/dL (0.40-1.00); Potassium, Blood 3.8 mmol/L (3.5-5.5)
[2017-06-14 01:07] LABS: Hematocrit 29.2 % (33.0-51.0); Hemoglobin 9.6 g/dL (11.5-16.0); Mean Corpuscular HGB Conc 32.9 g/dL (31.5-36.5); Mean Corpuscular Volume 94 fL (80-100); Mean Platelet Volume 10.9 fL (9.1-12.4); RDW Coefficient Variation 15.6 % (11.7-14.2); RDW Standard Deviation 53.9 fL (35.1-46.3); White Blood Cell Count 26.83 K/mm3 (4.00-11.30)
[2017-06-14 01:10] LABS: Platelet Count 15 K/mm3 (150-400)
[2017-06-14 01:26] LABS: Bun/Creatinine Ratio 32.4 (12.0-20.0); Calcium, Blood 8.2 mg/dL (8.5-10.1); Creatinine, Blood 1.02 mg/dL (0.40-1.00); Potassium, Blood 4.2 mmol/L (3.5-5.5)
[2017-06-14 01:27] LABS: BAND PERCENT MAN 1 % (0-8); BASOPHILS PERCENT MAN 0 % (0-2); BLASTS PERCENT MAN 3 % (0-0); EOSINOPHILS ABSOLUTE MAN 0.26 K/mm3 (0.00-0.68); EOSINOPHILS PERCENT MAN 1 % (0-6); LYMPHOCYTES PERCENT MAN 25 % (21-46); METAMYELOCYTE ABSOLUTE MAN 0.26 K/mm3 (0.00-0.00); METAMYELOCYTE PERCENT MAN 1 % (0-0); MONOCYTES ABSOLUTE MAN 16.09 K/mm3 (0.16-1.47); MONOCYTES PERCENT MAN 60 % (4-13); MYELOCYTE ABSOLUTE MAN 1.07 K/mm3 (0.00-0.00); MYELOCYTE PERCENT MAN 4 % (0-0); NEUTROPHILS ABSOLUTE MAN 1.34 K/mm3 (1.96-9.15); PROMYELOCYTE ABSOLUTE MAN 0.26 K/mm3 (0.00-0.00); PROMYELOCYTE PERCENT MAN 1 % (0-0); SEG NEUTROPHILS PERCENT MAN 4 % (41-73); TOTAL CELLS COUNTED 100
[2017-06-15 05:51] LABS: Hematocrit 29.8 % (33.0-51.0); Hemoglobin 9.6 g/dL (11.5-16.0); Mean Corpuscular HGB 30.7 pg (26.0-34.0); Mean Corpuscular HGB Conc 32.2 g/dL (31.5-36.5); Mean Corpuscular Volume 95 fL (80-100); RDW Coefficient Variation 15.4 % (11.7-14.2); RDW Standard Deviation 53.4 fL (35.1-46.3); Red Blood Cell Count 3.13 M/mm3 (3.80-5.20); White Blood Cell Count 20.41 K/mm3 (4.00-11.30)
[2017-06-15 05:59] LABS: Platelet Count 10 K/mm3 (150-400)
[2017-06-15 06:14] LABS: Bun/Creatinine Ratio 31.8 (12.0-20.0); Calcium, Blood 8.4 mg/dL (8.5-10.1); Creatinine, Blood 1.07 mg/dL (0.40-1.00)
[2017-06-15 06:15] LABS: BASOPHILS PERCENT MAN 0 % (0-2); BLASTS PERCENT MAN 1 % (0-0); EOSINOPHILS PERCENT MAN 1 % (0-6); LYMPHOCYTES ABSOLUTE MAN 6.53 K/mm3 (0.84-5.20); LYMPHOCYTES PERCENT MAN 32 % (21-46); METAMYELOCYTE PERCENT MAN 2 % (0-0); MONOCYTES ABSOLUTE MAN 10.61 K/mm3 (0.16-1.47); MONOCYTES PERCENT MAN 52 % (4-13); MYELOCYTE ABSOLUTE MAN 0.81 K/mm3 (0.00-0.00); MYELOCYTE PERCENT MAN 4 % (0-0); NEUTROPHILS ABSOLUTE MAN 1.63 K/mm3 (1.96-9.15); SEG NEUTROPHILS PERCENT MAN 8 % (41-73); TOTAL CELLS COUNTED 100
[2017-06-16 01:36] LABS: Hematocrit 29.3 % (33.0-51.0); Mean Corpuscular HGB Conc 34.1 g/dL (31.5-36.5); RDW Standard Deviation 50.2 fL (35.1-46.3); Red Blood Cell Count 3.23 M/mm3 (3.80-5.20); White Blood Cell Count 17.06 K/mm3 (4.00-11.30)
[2017-06-16 01:38] LABS: Mean Corpuscular Volume 91 fL (80-100); Mean Platelet Volume 9.8 fL (9.1-12.4)
[2017-06-16 01:40] LABS: Platelet Count 4 K/mm3 (150-400)
[2017-06-16 01:54] LABS: Anion Gap 11 mmol/L (6-16); Blood Urea Nitrogen 36 mg/dL (8-24); CO2, Blood 22 mmol/L (21-32); Calcium, Blood 8.1 mg/dL (8.5-10.1); Chloride, Blood 109 mmol/L (98-108); Creatinine, Blood 1.03 mg/dL (0.40-1.00); Glomerular Filtration Rate 55 (60-); Glucose, Blood 122 mg/dL (70-99); Potassium, Blood 4.2 mmol/L (3.5-5.5); Sodium, Blood 142 mmol/L (136-145); Vancomycin, Trough 14.1 ug/mL (5.0-10.0)
[2017-06-16 02:01] LABS: BAND PERCENT MAN 1 % (0-8); BASOPHILS PERCENT MAN 0 % (0-2); BLASTS PERCENT MAN 5 % (0-0); EOSINOPHILS PERCENT MAN 0 % (0-6); LYMPHOCYTES ABSOLUTE MAN 6.82 K/mm3 (0.84-5.20); LYMPHOCYTES PERCENT MAN 40 % (21-46); METAMYELOCYTE ABSOLUTE MAN 0.17 K/mm3 (0.00-0.00); METAMYELOCYTE PERCENT MAN 1 % (0-0); MONOCYTES ABSOLUTE MAN 8.01 K/mm3 (0.16-1.47); MONOCYTES PERCENT MAN 47 % (4-13); MYELOCYTE ABSOLUTE MAN 0.51 K/mm3 (0.00-0.00); MYELOCYTE PERCENT MAN 3 % (0-0); NEUTROPHILS ABSOLUTE MAN 0.51 K/mm3 (1.96-9.15); PLASMA CELL ABSOLUTE MAN 0.17 K/mm3 (0.00-0.00); PLASMA CELLS PERCENT MAN 1 % (0-0); SEG NEUTROPHILS PERCENT MAN 2 % (41-73); TOTAL CELLS COUNTED 100
[2017-06-16 06:11] LABS: Mean Platelet Volume 9.8 fL (9.1-12.4); Platelet Count 112 K/mm3 (150-400)
[2017-06-17 05:33] LABS: Hematocrit 33.3 % (33.0-51.0); Hemoglobin 10.8 g/dL (11.5-16.0); Mean Corpuscular HGB 31.1 pg (26.0-34.0); Mean Corpuscular HGB Conc 32.4 g/dL (31.5-36.5); Mean Platelet Volume 9.9 fL (9.1-12.4); Platelet Count 89 K/mm3 (150-400); RDW Coefficient Variation 15.2 % (11.7-14.2); RDW Standard Deviation 53.1 fL (35.1-46.3); Red Blood Cell Count 3.47 M/mm3 (3.80-5.20); White Blood Cell Count 19.63 K/mm3 (4.00-11.30)
[2017-06-17 05:44] LABS: Mean Corpuscular Volume 96 fL (80-100)
[2017-06-17 06:01] LABS: BAND PERCENT MAN 1 % (0-8); BASOPHILS PERCENT MAN 0 % (0-2); BLASTS PERCENT MAN 16 % (0-0); EOSINOPHILS PERCENT MAN 0 % (0-6); LYMPHOCYTES % ATYPICAL MANUAL 3 % (0-0); LYMPHOCYTES ABSOLUTE MAN 5.88 K/mm3 (0.84-5.20); LYMPHOCYTES PERCENT MAN 27 % (21-46); METAMYELOCYTE ABSOLUTE MAN 0.19 K/mm3 (0.00-0.00); METAMYELOCYTE PERCENT MAN 1 % (0-0); MONOCYTES ABSOLUTE MAN 8.63 K/mm3 (0.16-1.47); MONOCYTES PERCENT MAN 44 % (4-13); MYELOCYTE ABSOLUTE MAN 0.19 K/mm3 (0.00-0.00); MYELOCYTE PERCENT MAN 1 % (0-0); NEUTROPHILS ABSOLUTE MAN 1.17 K/mm3 (1.96-9.15); PROMYELOCYTE ABSOLUTE MAN 0.39 K/mm3 (0.00-0.00); PROMYELOCYTE PERCENT MAN 2 % (0-0); SEG NEUTROPHILS PERCENT MAN 5 % (41-73); TOTAL CELLS COUNTED 100
[2017-06-17] MEDS ORDERED: Acetaminophen325 M1 PO (11:55)
[2017-06-17] MEDS ORDERED: LEVO750 PO (11:56)
[2017-06-17] MEDS ORDERED: CALCIUM 500 +1 EAC3 PO (11:56)
[2017-06-17] MEDS ORDERED: GNP B-COMPLEX1 EACH PO (11:58)
[2017-06-17] MEDS ORDERED: IMODIUM A-D2 M1 PO (11:59)
[2017-06-17] MEDS ORDERED: THYR60 PO (12:27)
== END 2017-06-17 14:50 | disposition home or self-care (01) | DRG 871 ==
LOC: ER 17:14 → PCU 19:46 → MEDS 06-13 16:57 → ENPENDDIS 06-17 11:00 → MEDS 06-17 14:50
PROVIDERS: Emergency Medicine; Family Medicine; Internal Medicine
PROC: 30233N1 Transfusion of Nonautologous Red Blood Cells into Peripheral Vein, Percutaneous Approach (ICD-10-PCS; principal; 2017-06-11)
DX: A41.9 Sepsis, unspecified organism (principal); J18.1 Lobar pneumonia, unspecified organism; D69.6 Thrombocytopenia, unspecified; I50.32 Chronic diastolic (congestive) heart failure; I48.2 Chronic atrial fibrillation; Z68.1 Body mass index [BMI] 19.9 or less, adult; D63.8 Anemia in other chronic diseases classified elsewhere; D46.9 Myelodysplastic syndrome, unspecified; Z66 Do not resuscitate; E89.0 Postprocedural hypothyroidism; R62.7 Adult failure to thrive; R63.6 Underweight; Z88.2 Allergy status to sulfonamides; Z88.8 Allergy status to other drugs, medicaments and biological substances; Z79.899 Other long term (current) drug therapy; Z85.830 Personal history of malignant neoplasm of bone
CPT/HCPCS: 36415; 36430; 71046; 80048; 80053; 80202; 83605; 84484; 85025; 85027; 85049; 85610; 86850; 86900; 86901; 86923; 87040; 87493; 93005; 93010; 94760; 94762; 96361; 96374; 96375; 97110; 97116; 97161; 97166; 97535; 99285; C1751; G8978; G8979; G8987; G8988; J1170; J2543; J3370; J7030; J7050; P9016; P9035

== ENCOUNTER 2017-07-03 11:32 | Day surgery (SDC) | payer MEDICARE, SELFPAY ==
[~2017-07-03 11:32] MED LIST changes: +Acetaminophen325 M1 PO; +CALCIUM 500 +1 EAC3 PO; +GNP B-COMPLEX1 EACH PO; +IMODIUM A-D2 M1 PO; +LEVO750 PO; +LORA.5; +THYR60 PO; +TOCO1000 PO; +UBID100 PO
[2017-07-03] MEDS ORDERED: Fentanyl1 EACH TD (13:56)
== END 2017-07-03 17:53 | disposition home or self-care (01) ==
LOC: ATC 11:32
DX: D69.6 Thrombocytopenia, unspecified (principal); E03.9 Hypothyroidism, unspecified; D63.8 Anemia in other chronic diseases classified elsewhere; D46.22 Refractory anemia with excess of blasts 2; I50.32 Chronic diastolic (congestive) heart failure; J18.9 Pneumonia, unspecified organism; D46.9 Myelodysplastic syndrome, unspecified; R62.7 Adult failure to thrive
CPT/HCPCS: 36430; 86850; 86900; 86901; 86923; J1642; J7030; P9016

== ENCOUNTER 2017-07-05 16:22 | Emergency (ER) | payer MEDICARE, SELFPAY ==
[~2017-07-05 16:22] MED LIST changes: +Fentanyl1 EACH TD
== END 2017-07-05 17:00 | disposition left against medical advice (07) ==
LOC: ER 16:22
DX: Z53.21 Procedure and treatment not carried out due to patient leaving prior to being seen by health care provider (principal)

== ENCOUNTER 2017-07-08 13:58 | Observation (INO) | payer MEDICARE, SELFPAY ==
[~2017-07-08] VITALS: Ht 162.6 cm; Wt 57.5 kg
[2017-07-08 16:46] LABS: Mean Corpuscular HGB 31.4 pg (26.0-34.0); Mean Corpuscular HGB Conc 31.9 g/dL (31.5-36.5); Mean Corpuscular Volume 98 fL (80-100); Mean Platelet Volume 9.8 fL (9.1-12.4); NRBC ABSOLUTE 0.27 K/mm3 (0.00-0.02); NRBC Auto 0.1 /100 WBC (0.0-0.2); RDW Standard Deviation 57.5 fL (35.1-46.3); Red Blood Cell Count 1.18 M/mm3 (3.80-5.20)
[2017-07-08 16:57] LABS: International Normalized Ratio 1.4; Prothrombin Time Results 14.7 Sec (9.7-11.5)
[2017-07-08 17:07] LABS: White Blood Cell Count 283.19 K/mm3 (4.00-11.30)
[2017-07-08 17:08] LABS: Hematocrit 11.6 % (33.0-51.0); Hemoglobin 3.7 g/dL (11.5-16.0); Platelet Count 14 K/mm3 (150-400)
[2017-07-08 17:13] LABS: Albumin, Blood 3.5 g/dL (3.4-5.0); Albumin/Globulin Ratio 1.4 (0.8-1.8); Bilirubin, Total 2.1 mg/dL (0.1-1.0); Bun/Creatinine Ratio 20.8 (12.0-20.0); Calcium, Blood 8.6 mg/dL (8.5-10.1); Creatinine, Blood 2.83 mg/dL (0.40-1.00); Globulin, Blood 2.5 g/dL (2.2-4.0); Potassium, Blood 4.3 mmol/L (3.5-5.5)
[2017-07-08 17:32] LABS: BASOPHILS PERCENT MAN 0 % (0-2); EOSINOPHILS ABSOLUTE MAN 5.66 K/mm3 (0.00-0.68); EOSINOPHILS PERCENT MAN 2 % (0-6); LYMPHOCYTES ABSOLUTE MAN 56.63 K/mm3 (0.84-5.20); LYMPHOCYTES PERCENT MAN 20 % (21-46); METAMYELOCYTE ABSOLUTE MAN 16.99 K/mm3 (0.00-0.00); METAMYELOCYTE PERCENT MAN 6 % (0-0); MONOCYTES ABSOLUTE MAN 201.06 K/mm3 (0.16-1.47); MONOCYTES PERCENT MAN 71 % (4-13); MYELOCYTE ABSOLUTE MAN 2.83 K/mm3 (0.00-0.00); MYELOCYTE PERCENT MAN 1 % (0-0); TOTAL CELLS COUNTED 100
[2017-07-08] MEDS ORDERED: FURO40 PO (17:46)
[2017-07-08] MEDS ORDERED: ONDA4ODT MM (17:47)
[2017-07-08 17:56] LABS: D-Dimer, Quantitative 1.43 mg/L FEU (0.00-0.52)
[2017-07-08 18:27] LABS: SEG NEUTROPHILS PERCENT MAN 0 % (41-73)
== END 2017-07-08 21:14 | disposition home or self-care (01) ==
LOC: ER 13:58 → MEDS 13:59 → ENPENDDIS 21:14 → MEDS 21:14
PROVIDERS: Emergency Medicine; Physician Assistant
DX: J96.01 Acute respiratory failure with hypoxia (principal); E03.9 Hypothyroidism, unspecified; D46.9 Myelodysplastic syndrome, unspecified; C95.90 Leukemia, unspecified not having achieved remission; I12.9 Hypertensive chronic kidney disease with stage 1 through stage 4 chronic kidney disease, or unspecified chronic kidney disease; N18.3 Chronic kidney disease, stage 3 (moderate); N17.9 Acute kidney failure, unspecified; E87.1 Hypo-osmolality and hyponatremia; E46 Unspecified protein-calorie malnutrition; E87.2 Acidosis; Z79.899 Other long term (current) drug therapy; Z83.3 Family history of diabetes mellitus; Z88.2 Allergy status to sulfonamides; Z88.1 Allergy status to other antibiotic agents
CPT/HCPCS: 80053; 85025; 85379; 85384; 85610; 85730; 93005; 93010; 96374; 96375; 96376; 99285; G0378; J2060; J3010